=== PATIENT | female | born 1960 | race Caucasian/White ===

== ENCOUNTER → 2020-12-14 14:18 | Outpatient (CLI) | payer SELFPAY ==
--- NOTE | 2020-12-14 14:23 | CT_ITS ---
STUDY: CARDIAC CALCIUM SCORING - CT CHEST REASON FOR EXAM: Female, 60 years old. HLD,ASSESS FOR CAD OVER READ ONLY RADIATION DOSAGE (If Supplied By Facility): CTDIvol = ( 12.19 ) mGy, DLP = ( 170.66 ) mGycm TECHNIQUE: Axial non-enhanced images were acquired through the heart for the sole purpose of measuring coronary artery calcium. Individualized dose optimization techniques were used for this CT. COMPARISON: None. FINDINGS: Visualized surrounding anatomy: Normal. Left Main Coronary Artery: 0 Left Anterior Descending Artery: 0 Left Circumflex Artery: 0 Right Coronary Artery: 0 Other: 0 Total Calcium Score: 0 CT/Limited Chest CT w/CCTA IMPRESSION: A Calcium Score of 0 places the patient in the approximate 25 percentile, based on the RAMIRES data calculator. Please go to: [email or web address]-[email or web address].[email or web address] , for a description of the calculator. Electronically Signed: Tuan Palm MD at 18:04 EDT , Service support ,
[2020-12-14 14:32] VITALS: BP 135/72; PULSE 60; RESP 16; TEMP 36.6; O2SAT 98; BMI 32.9
--- NOTE | 2020-12-14 18:35 | CA.SCORE ---
Calcium Scoring Date of Study:: 12/14/20 Coronary Calcium Scoring: High-resolution Computed Tomographic imaging of the chest was performed on 12/14/2020 with particular attention paid to the coronary arteries. Images from the examination were analyzed for the presence and extent of coronary artery calcification , using coronary calcium quantification software. The patient tolerated the procedure well and there were no complications. The results of the coronary calcification analysis are provided below. Findings Coronary Artery Left Main (LM): 0 Left Anterior Descending (LAD): 0 Left Circumflex (LCX): 0 Right Coronary Artery (RCA): 0 Total Agatston Score: 0 Percentile Ranking: According to prepublished reference tables 25% of people of the same gender/similar age had the same/lower scores. Calcium Scoring Interpretation: 0 No identifiable atherosclerotic plaque. Very low cardiovascular disease risk. <5% chance of presence coronary artery disease A Negative Examination 1-10 Minimal Plaque burden. Significant coronary artery disease very unlikely. 11-100 Mild plaque burden. Likely mild or minimal coronary atherosclerosis. 101-400 Moderate plaque burden Moderate non-obstructive coronary artery disease highly likely. Over 400 Extensive plaque burden. High likelihood of at least one significant coronary stenosis (>50% diameter) Calcium Score: 0 Negative Examination Conclusion: Continue cardiovascular evaluation care as deemed appropriate. This note was generated using a voice recognition system and there may be incorrect words, spelling or punctuation that were not noted when reviewing the office note prior to saving.
== END ==
PROVIDERS: PCP Family Medicine; Referring Provider Family Medicine; Visit Provider Family Medicine
DX: Z13.6 Encounter for screening for cardiovascular disorders (principal); E78.5 Hyperlipidemia, unspecified
CPT/HCPCS: 75571; 76380

== ENCOUNTER → 2022-01-19 | Outpatient (CLI) | payer SELFPAY ==
[2022-01-19 07:50] LABS: Absolute Lymphocyte Count 2.43 X10^3/uL (0.83-4.51); Absolute Neutrophil Count 3.7 X10^3/uL (2.0-7.7); Basophil# 0.05 X10^3/uL; Basophil% 0.7 % (0-1); Eosinophil# 0.25 X10^3/uL; Eosinophils% 3.5 % (0-5); Hematocrit 42.4 % (37-47); Hemoglobin 14.6 g/dL (12.0-15.0); Lymphocyte # 2.43 X10^3/ul (0.83-4.51); Lymphocyte % 34.1 % (19-41); Mean Corp Hgb Conc 34.4 g/dL (32-36); Mean Corpuscular Hgb 29.3 pg (27.0-32.0); Mean Corpuscular Volume 85.1 fL (81-99); Mean Platelet Vol. 8.5 fl (6.2-12.0); Monocyte# 0.72 X10^3/uL; Monocyte% 10.1 % (0-10); NRBC Flagged by Analyzer 0 % (0-5); Neutrophil # 3.65 X10^3/uL (2.7-7.7); Neutrophil % 51.3 % (47-70); Platelet Count 251 K/mm3 (150-450); RBC Distribution Width CV 12.1 % (11.6-14.6); RBC Distribution Width SD 37.2 fl (35.1-43.9); Red Blood Count 4.98 M/mm3 (4.2-5.4); White Blood Count 7.1 K/mm3 (4.4-11.0)
[2022-01-19 08:41] LABS: ALB/GLOB Ratio 1.2 RATIO (0.9-2.4); AST(SGOT) 21 U/L (15-37); Alanine Aminotransfer ALT/SGPT 49 U/L (13-56); Albumin, Serum 3.8 g/dL (3.2-5.0); Alkaline Phosphatase 68 U/L (45-117); Anion Gap 6 (5-15); BUN 21 mg/dL (7-18); BUN/Creat Ratio 22.1 RATIO (10-20); Calcium,Total 9.1 mg/dL (8.5-10.1); Chloride 108 mmol/L (98-107); Cholesterol 252 mg/dL (200); Creatinine, Serum 0.95 mg/dL (0.55-1.02); EST Glomerular Filtration Rate 63 mL/min (>60); Est Glom Filt Rate - Afr Amer 77 mL/min (>60); Globulin 3.3 g/dL (2.2-4.2); Glucose 113 mg/dL (74-106); High Density Lipoprotein 49 mg/dL; Potassium 4.2 mmol/L (3.5-5.1); Protein, Total 7.1 g/dL (6.4-8.2); Sodium Level 139 mmol/L (136-145); T4 Free Direct 1.31 ng/dL (0.76-1.46); Triglycerides 179 mg/dL; Very Low Density Lipoprotein 36 mg/dL (5-40)
== END | disposition home or self-care (01) ==
LOC: LAB 07:34
PROVIDERS: PCP Family Medicine; Referring Provider Family Medicine; Visit Provider Family Medicine
DX: Z00.00 Encounter for general adult medical examination without abnormal findings (principal); E03.9 Hypothyroidism, unspecified
CPT/HCPCS: 36415; 80053; 80061; 84439; 84443; 85025

== ENCOUNTER → 2023-06-25 | Outpatient (CLI) | payer SELFPAY ==
--- OUTSIDE RECORDS SUMMARY | 2023-06-25 08:02 | XMS RPT_ITS | CCD ---
Author Name Unknown Address [address] [place] [address] [place] [id number] Organization [facility] Care Team Providers Care Cutting Machine Tender Name Role Phone Dereje SIMENTAL, Ino Hernández Primary Care Provider Medications Completed/Discontinued Medications Medication Drug Class(es) Dates Sig (Normalized) Sig (Original) levothyroxine sodium 0.1 mg oral tablet (5 sources) l-Thyroxine Start: 07-26-2020 take 1 tablet by mouth once daily for thyroid dysfunction levothyroxine (SYNTHROID) 100 mcg tablet Indications: Acquired hypothyroidism Take 1 tablet by mouth once daily. Take on empty stomach. For Thyroid. 90 tablet 1 07/26/2020 Active Problems Active Problems Problem Classification Problem Date Documented Da te Episodic/Chronic Anxiety disorders (5 sources) Anxiety; Translations: [Anxiety disorder, unspecified] 02-04-2017 Chronic Disorders of lipid metabolism (5 sources) Hyperlipidemia; Translations: [Hyperlipidemia, unspecified] 05-04-2019 Chronic Other inflammatory condition of skin (5 sources) Rosacea; Translations: [Rosacea, unspecified] 07-27-2020 Chronic Other nutritional; endocrine; and metabolic disorders (5 sources) Obese class I; Translations: [Obesity, unspecified] 02-04-2017 Chronic Other screening for suspected conditions (not mental disorders or infectious disease) (3 sources) Patient encounter status; Translations: [Encounter for screening mammogram for malignant neoplasm of breast] Episodic Thyroid disorders (5 sources) Hypothyroidism; Translations: [Hypothyroidism, unspecified] Onset: 05-24-2010 05-24-2010 Chronic Past or Other Problems Problem Classification Problem Date Documented Da te Episodic/Chronic Conditions associated with dizziness or vertigo (5 sources) Benign paroxysmal positional vertigo; Translations: [Benign paroxysmal vertigo, unspecified ear] Onset: 05-19-2019 05-19-2019 Episodic Results Test Name Value Interpretation Reference Range Facil ity Encounters Encounter Date Encounter Type Care Provider Facility Start: 04-24-2023 ambulatory Ino Chavez MD Work Phone: Internal Medicine [facility] [place] Start: 03-14-2022 Documentation procedure Mammog brandon Coordinator [facility] Start: 03-14-2022 Letter encounter Mammography Coordinator [facility] Department Start: 03-14-2022 Telephone encounter Huey Chavez MD Work Phone: Family Medicine [place] Procedures Date Procedure Procedure Detail Performing Clinician Start: 03-13-2022 End: 03-13-2022 Mammography Bulk Order Provider Start: 11-28-2020 Mammography Huey Chavez MD Work Phone: Start: 07-25-2020 Lipid 1996 panel - S chuyita or Plasma Screen Ws Start: 07-24-2020 Adult depression screening assessment Ino Chavez MD Work Phone: Start: 03-10-2012 Colonoscopy Huey Chavez MD Work Phone: Plan of Treatment Date Care Activity Detail Author Start: 10-25-2025 Urine microalbumin profile [facility] Start: 07-25-2025 Lipid 1996 panel - Serum or Plasma Lipid Screening [facility] Start: 07-25-2025 Lipid panel Lipid Screening [facility] Start: 07-25-2025 LIPID SCREEN LIPID SCREEN [facility] Start: 07-26-2023 DIABETES SCREEN DIABETES SCREEN [facility] Start: 07-26-2023 Diabetes Screening Diabetes Screening [facility] Start: 03-13-2023 Mammography [facility] Start: 03-13-2023 Screening for malignant neoplasm of breast Mammogram Screening [facility] Start: 01-04-2023 Influenza vaccination [facility] Start: 05-06-2022 Depression Assessment Depression Assessment [facility] Start: 03-10-2022 Colonoscopy COLONOSCOPY [facility] Start: 03-10-2022 COLORECTAL CANCER SCREENING COLORECTAL CANCER SCREENING [facility] Start: 03-10-2022 Screening for malignant neoplasm of colon [facility] Start: 01-04-2022 Influenza vaccination INFLUENZA (#1) [facility] Start: 11-28-2021 Mammography MAMMOGRAM [facility] Start: 07-26-2021 ANNUAL PCP TEAM CHRONIC DISEASE VISIT ANNUAL PCP TEAM CHRONIC DISEASE VISIT [facility] Start: 07-24-2021 Adult depression screening assessment DEPRESSION SCREENING [facility] Start: 05-06-2021 DEPRESSION ASSESSMENT DEPRESSION ASSESSMENT [facility] Start: 2021 RSV Vaccine (1 - 1-dose 60+ series) RSV Vaccine (1 - 1-dose 60+ series) [facility] Start: 01-24-2013 FECAL OCCULT BLOOD FECAL OCCULT BLOOD [facility] Start: 01-24-2013 Screening for malignant neoplasm of colon Fecal Occult Blood [facility] Start: 2011 SHINGRIX VACCINE (1 of 2) SHINGRIX VACCINE (1 of 2) [facility] Start: 2006 COLOGUARD (FIT-DNA) COLOGUARD (FIT-DNA) [facility] Start: [address] COLONOGRAPHY [facility] Start: 2006 Screening for malignant neoplasm of colon [facility] Start: 2006 SIGMOIDOSCOPY SIGMOIDOSCOPY [facility] Start: 1960 COVID-19 VACCINE (#1) COVID-19 VACCINE (#1) [facility] End: 05-23-2024 EVER SCREENING EVER SCREENING Radiology Routine Encounter for screening mammogram for breast cancer 1 Occurrences starting 04/24/2023 until 05/23/2024 [facility] Work Phone: Immunizations Immunization Date Immunization Notes Care Provider Christina gómez 05-04-2019 influenza virus vaccine, unspecified formulation Screen Wstr [facility] 10-26-2015 hepatitis A vaccine, adult dosage Ino Chavez MD Work Phone: [facility] 10-26-2015 tetanus toxoid, reduced diphtheria toxoid, and acellular pertussis vaccine, adsorbed Ino Chavez MD Work Phone: [facility] 10-26-2015 typhoid vaccine, toya e, oral Ino Chavez MD Work Phone: [facility] 10-16-2005 tetanus toxoid, reduced diphtheria toxoid, and acellular pertussis vaccine, adsorbed Ino Chavez MD Work Phone: [facility] Work Phone: Social History Date Type Detail Facility Start: 02-04-2017 Tobacco smoking status NHIS Never smoked tobacco [facility] Work Phone: Start: 02-04-2017 Tobacco use and exposure Smokeless tobacco non-user [facility] Work Phone: Start: 07-27-2020 Alcohol intake Current drinker of alcohol (finding) [facility] Start: 04-10-2020 End: 07-27-2020 Alcohol intake [facility] Start: 01-12-2020 History SDOH Alcohol Frequency 4 [facility] Start: 01-12-2020 End: 07-24-2020 History SDOH Alcohol Std Drinks 1 [facility] Start: 01-31-2012 History SDOH Alcohol Comment ocas [facility] Start: 01-12-2020 History SDOH Social Connections Phone 5 [facility] Start: 01-12-2020 History SDOH Social Connections Religion 3 [facility] Start: 01-12-2020 End: 07-24-2020 History SDOH Transport Med 2 [facility] Start: 01-12-2020 Education 16 [facility] Start: 1960 Sex Assigned At Female [facility] Start: 01-12-2020 End: 04-10-2020 Social connection and isolation panel [facility] Do you belong to any clubs or organizations such as yazdanism groups, unions, fraternal or athletic groups, or school groups? Yes [facility] Are you now , , , , never or living with a partner? [facility] How often to you hav e a drink containing alcohol? 2-3 time sa week [facility] How many standard dr inks containing alcohol do you have on a typical day? 1 or 2 [facility] How often do you hav e 6 or more drinks on 1 occasion? Never [facility] How hard is it for y ou to pay for the very basics like food, housing, medical care, and heating Not hard at all [facility] Do you feel stress - tense, restless, nervous, or anxious, or unable to sleep at night because your mind is troubled all the time - these days [OSQ] Not at all [facility] (I/We) worried wheth er (my/our) food would run out before (I/we) got money to buy more. Never true [facility] In the past 12 month s, was there a time when you were not able to pay the mortgage or rent on time? No [facility] Start: 11-12-2019 Gender identity Identifies as female gender (finding) [facility] Start: 11-12-2019 Sexual orientation Heterosexual (finding) [facility] Clinical Notes 12-26-2011 to 04-24-2023 Telephone Encounter - Tania Kade Cifuentes - 03/14/2022 2:19 PM ESTTelephone Encounter - Tania Braun Ma - 03/14/2022 2:17 PM ESTLetter - Mammography Coordinator - 03/14/2022 12:46 PM EST Note Date & Type Note Facility 04-24-2023 Note Patient Outreach (IN [facility]) ROQUE COLLAZO ([id number]) 1960 F Date Time Provider Department 04/24/23 INO CHAVEZ During your visit today, we recorded the following information about you: Allergies As of Date: 04/24/2023 (No Known Allergies) Date Reviewed: 07/26/2020 Reviewed by: Juanjo Yates Ma - Fully Assessed Visit Diagnosis:Encounter for screening mammogram for breast cancer [Z12.31] Order(s):[facility] SCREENING [[id number]] Order #: [id number] FUTURE Prescriptions as of 04/29/2023 - levothyroxine (SYNTHROID) 100 mcg tablet Take 1 tablet by mouth once daily. Take on empty stomach. For Thyroid. Problem List As Of Date 04/24/2023 Noted Resolved Hypothyroidism [E03.9] 05/24/2010 Hyperlipemia [E78.5] 05/24/2010 02/04/2017 Hyperlipidemia type IV [E78.1] 12/26/2011 05/04/2019 Obesity (BMI 30.0-34.9) [E66.9] Anxiety [F41.9] Hyperlipidemia [E78.5] BPPV (benign paroxysmal positional vertigo), un*05/19/2019 Olesya [L71.9] Encounter Status:Closed by LANA FARLEY on 04/29/23 [facility] 03-14-2022 Miscellaneous Notes Letter mailed to pt home of results. Tania Braun MA ----- Message from Ino Chavez MD sent at 03/14/2022 1:17 PM EST ----- Negative mammogram. Repeat in 1 year. Patient due for annual physical. Recommend OV in next 1-2 months. documented in this encounter [facility] 03-14-2022 Miscellaneous Notes March 14, 2022 PID: [id number] Roque Collazo [address] [place] [address] Dear Ms. Collazo, We are pleased to inform you that the results of your recent breast imaging exam on 03/13/2022 are normal. Early detection of cancer is very important. We also understand recommendations regarding breast cancer screening are controversial. Please discuss with your primary care provider which strategy is best for you and whether a mammogram is right for you. Your imaging studies and report will be kept on file at [facility] as part of your permanent medical record and are available for your continuing care. Thank you for allowing us to help in meeting your health care needs. Sincerely, Dr. Lemus Interpreting Radiologist [facility] (Normal over 40) documented in this encounter [facility] documented as of this encounter (statuses as of 01/08/2022) [facility]2012 History of Past illness Narrative* Problem Noted Date Resolved Date Hyperlipidemia type IV 12/26/2011 9 Hyperlipemia 05/24/2010 02/04/2017 documented as of this encounter (statuses as of 03/14/2022) [facility] History of Past illness Narrative* Problem Noted Date Resolved Date Hyperlipidemia type IV 12/26/2011 9 Hyperlipemia 05/24/2010 02/04/2017 documented as of this encounter (statuses as of 03/16/2022) [facility] History of Past illness Narrative* Problem Noted Date Diagnosed Date Resolved Date Hyperlipidemia type IV 12/26/201105/04 Hyperlipemia 05/24/2010 02/04/2017 documented as of this encounter (statuses as of 03/10/2023) [facility] History of Past illness Narrative* Problem Noted Date Diagnosed Date Resolved Date Hyperlipidemia type IV 12/26/201105/04 Hyperlipemia 05/24/2010 02/04/2017 documented as of this encounter (statuses as of 04/29/2023) [facility] note* Diagnosis Encounter for screening mammogram for breast cancer documented in this encounter [facility] note* Diagnosis Encounter for screening mammogram for breast cancer documented in this encounter [facility] note* Diagnosis Encounter for screening mammogram for breast cancer documented in this encounter [facility] for referral (narrative)* Diagnostic Procedure Only (Routine) - Pending Review Specialty Diagnoses / Procedures Referred By Meg wall Referred To Contact [facility] Diagnoses Encounter for screening mammogram for breast cancer Procedures EVER SCREENING SCREENING MAMMOGRAPHY BI 2-VIEW BREAST INC Ino Lal MD [address] [place] [address] [facility] [address] [place] [id number] Referral ID Status Reason Start Date Expiration Date Visits Requested Visits Authorized [id number] Pending Review Auto-Generat ed Referral 01/03/2022 02/02/2023 1 1 [facility] Diagnostic Procedure Only (Routine) - Closed Specialty Diagnoses / Procedures Referred By Meg wall Referred To Contact [facility] Diagnoses Encounter for screening mammogram for breast cancer Procedures EVER SCREENING SCREENING MAMMOGRAPHY BI 2-VIEW BREAST INC Ino Lal MD [address] [place] [address] [facility] [address] [place] [address] Referral ID Status Reason Start Date Expiration Date V isits Requested Visits Authorized [id number] Closed Auto-Generate d Referral 01/03/2022 02/02/2023 [facility] Diagnostic Procedure Only (Routine) - Pending Review Specialty Diagnoses / Procedures Referred By Meg wall Referred To Contact [facility] Diagnoses Encounter for screening mammogram for breast cancer Procedures EVER SCREENING SCREENING MAMMOGRAPHY BI 2-VIEW BREAST INC CAD Ino Chavez MD [address] [place] [address] [facility] [address] [place] [address] Referral ID Status Reason Start Date Expiration Date Visits Requested Visits Authorized [id number] Pending Review Auto-Generat ed Referral 3 05/23/2024 1 1 [facility] Summary Purpose Family History No Family History Records Found Advance Directives No Advanced Directives Records Found Additional Source Comments Source Comments (unrecognize d section and content) In the event this informatio n is protected by the Federal Confidentiality of Alcohol and Drug Abuse Patient Records regulations: The Federal rules restrict any use of the information to criminally investigate or prosecute any alcohol or drug abuse patient.[facility] the event this information is protected by the Federal Confidentiality of Alcohol and Drug Abuse Patient Records regulations: The Federal rules restrict any use of the information to criminally investigate or prosecute any alcohol or drug abuse patient.[facility] event this information is protected by the Federal Confidentiality of Alcohol and Drug Abuse Patient Records regulations: The Federal rules restrict any use of the information to criminally investigate or prosecute any alcohol or drug abuse patient.[facility] event this information is protected by the Federal Confidentiality of Alcohol and Drug Abuse Patient Records regulations: The Federal rules restrict any use of the information to criminally investigate or prosecute any alcohol or drug abuse patient.[facility] event this information is protected by the Federal Confidentiality of Alcohol and Drug Abuse Patient Records regulations: The Federal rules restrict any use of the information to criminally investigate or prosecute any alcohol or drug abuse patient.[facility] Care Teams (unrecognized sec tion and content) Cutting Machine Tender Relationship Specialty Start Date End Date Ino Chavez MD [address] [place], [place] [id number] PCP - General Family Medicine 02/04/17 Cutting Machine Tender Relationship Specialty Start Date End Date Ino Chavez MD [address] [place], [place] [id number] PCP - General Family Medicine 02/04/17 Cutting Machine Tender Relationship Specialty Start Date End Date Ino Chavez MD [address] [place], [place] [id number] PCP - General Family Medicine 02/04/17 Cutting Machine Tender Relationship Specialty Start Date End Date Ino Chavez MD [address] [place], [place] [id number] PCP - General Family Medicine 02/04/17 Reason for Visit (unrecogniz ed section and content) Specialty Diagnoses / Procedures Referred By Meg t Referred To Contact Radiology / RADIO [facility] Diagnoses screening mamm outside orders scanned and placed in syngo Procedures MAMMOGRAM SCREENING Amadeo Lopez, DO [address] [place] [address] Radio Mammo [facility] [address] [place] [address] Referral ID Status Reason Start Date Expiration Date V isits Requested Visits Authorized [id number] Closed Patient Cleared - Qualified 100% FAS 03/13/2022 05/12/2022 99 99 INFORMATION SOURCE (unrecogn ized section and content) FOR RECORDS PERTAINING TO PATIENTS WHO ARE OR HAVE BEEN ENROLLED IN A CHEMICAL DEPENDENCY/SUBSTANCEABUSE PROGRAM, SOME INFORMATION MAY BE OMITTED. This clinical summary was aggregated from multiple sources. Caution should be exercised in using it in the provision of clinical care. This summary normalizes information from multiple sources, and as a consequence, information in this document may materially change the coding, format and clinical context of patient data. In addition, data may be omitted in some cases. CLINICAL DECISIONS SHOULD BE BASED ON THE PRIMARY CLINICAL RECORDS. [facility]. provides no warranty or guarantee of the accuracy or completeness of information in this document.
[2023-06-25 12:15] LABS: Absolute Lymphocyte Count 2.43 X10^3/uL (0.83-4.51); Absolute Neutrophil Count 3.7 X10^3/uL (2.0-7.7); Basophil# 0.07 X10^3/uL; Eosinophil# 0.26 X10^3/uL; Eosinophils% 3.7 % (0-5); Hematocrit 43.4 % (37-47); Hemoglobin 14.8 g/dL (12.0-15.0); Lymphocyte # 2.43 X10^3/ul (0.83-4.51); Lymphocyte % 34.5 % (19-41); Mean Corp Hgb Conc 34.1 g/dL (32-36); Mean Corpuscular Hgb 29.8 pg (27.0-32.0); Mean Corpuscular Volume 87.3 fL (81-99); Mean Platelet Vol. 9.2 fl (6.2-12.0); Monocyte# 0.58 X10^3/uL; Monocyte% 8.2 % (0-10); NRBC Flagged by Analyzer 0 % (0-5); Neutrophil % 52.5 % (47-70); Platelet Count 254 K/mm3 (150-450); RBC Distribution Width CV 12.4 % (11.6-14.6); RBC Distribution Width SD 39.4 fl (35.1-43.9); Red Blood Count 4.97 M/mm3 (4.2-5.4); White Blood Count 7.1 K/mm3 (4.4-11.0)
[2023-06-25 12:40] LABS: ALB/GLOB Ratio 1.2 RATIO (0.9-2.4); AST(SGOT) 24 U/L (15-37); Alanine Aminotransfer ALT/SGPT 54 U/L (13-56); Alkaline Phosphatase 71 U/L (45-117); Anion Gap 6 (5-15); BUN 24 mg/dL (7-18); BUN/Creat Ratio 20.9 RATIO (10-20); Calcium,Total 9.5 mg/dL (8.5-10.1); Chloride 109 mmol/L (98-107); Cholesterol 246 mg/dL (200); Creatinine, Serum 1.15 mg/dL (0.55-1.02); EST Glomerular Filtration Rate 51 mL/min (>60); Est Glom Filt Rate - Afr Amer 61 mL/min (>60); Globulin 3.4 g/dL (2.2-4.2); Glucose 122 mg/dL (74-106); High Density Lipoprotein 43 mg/dL; Potassium 4.5 mmol/L (3.5-5.1); Protein, Total 7.4 g/dL (6.4-8.2); Sodium Level 141 mmol/L (136-145); T4 Free Direct 0.56 ng/dL (0.76-1.46); Triglycerides 221 mg/dL; Very Low Density Lipoprotein 44 mg/dL (5-40)
== END | disposition home or self-care (01) ==
LOC: BFHLAB 08:00
PROVIDERS: PCP Family Medicine; Visit Provider Family Medicine
DX: Z00.00 Encounter for general adult medical examination without abnormal findings (principal); E03.9 Hypothyroidism, unspecified
CPT/HCPCS: 36415; 80053; 80061; 84439; 84443; 85025

== ENCOUNTER → 2023-09-10 | Outpatient (CLI) | payer SELFPAY ==
[2023-09-10 12:52] LABS: Thyroid Stim Hormone (TSH) 0.82 uIU/mL (0.358-3.74)
== END | disposition home or self-care (01) ==
LOC: BFHLAB 08:08
PROVIDERS: PCP Family Medicine; Referring Provider Family Medicine; Visit Provider Family Medicine
DX: E03.9 Hypothyroidism, unspecified (principal)
CPT/HCPCS: 36415; 84443

== ENCOUNTER → 2023-12-06 | Outpatient (CLI) | payer SELFPAY ==
[2023-12-06 18:18] LABS: T4 Free Direct 0.71 ng/dL (0.76-1.46); Thyroid Stim Hormone (TSH) 0.59 uIU/mL (0.358-3.74)
== END | disposition home or self-care (01) ==
LOC: BFHLAB 15:45
PROVIDERS: PCP Family Medicine; Referring Provider Family Medicine; Visit Provider Family Medicine
DX: E03.9 Hypothyroidism, unspecified (principal)
CPT/HCPCS: 36415; 84439; 84443